=== PATIENT | male | born 1990 | race Caucasian/White ===

== ENCOUNTER 2019-02-24 01:43 | Emergency (ER) | payer MEDICAID ==
--- NOTE | 2019-02-24 01:51 | ER Report ---
History and Physical Time Seen By MD: 01:46 HPI/ROS CHIEF COMPLAINT: Hematuria HISTORY OF PRESENT ILLNESS: 28-year-old male presents with urinary burning and hematuria since 9 PM last night. Patient's had fever and chills for 2 days. Patient denies penile discharge. Patient denies flank pain. Patient denies history of kidney stones. REVIEW OF SYSTEMS: Respiratory: No cough, no dyspnea. Cardiovascular: No chest pain, no palpitations. Gastrointestinal: As above Musculoskeletal: As above Allergies: Coded Allergies: No Known Drug Allergies (Unverified , 02/24/19) Home Meds Active Scripts Cefuroxime Axetil (CEFUROXIME) 500 Mg Tablet, 500 MG PO BID for infection, #14 TAB Prov:MARVINSUDHIRGlen Delgado DO 02/24/19 Reviewed Nurses Notes: Yes Old Medical Records Reviewed: Yes Constitutional Vital Sign - Last 24 Hours 02/24/19 02/24/19 02/24/19 02/24/19 01:48 01:49 01:58 02:00 Temp 98.9 Pulse 92 92 Resp 22 B/P (MAP) 134/82 (99) 134/82 122/70 (87) Pulse Ox 94 92 O2 Delivery Room Air 02/24/19 02:13 Pulse 90 Pulse Ox 91 Physical Exam Vital signs stable, afebrile, pulse ox normal General Appearance: The patient is alert, has no immediate need for airway protection and no current signs of toxicity. Vital signs stable, afebrile, pulse ox normal HEENT: Anicteric sclera, TMs normal oropharynx without redness or exudate Respiratory: Chest is non tender, lungs are clear to auscultation. Cardiac: regular rate and rhythm. Mirella MRI from [facility] non-ill Gastrointestinal: Abdomen is soft and non tender, no masses, bowel sounds normal. Musculoskeletal: Neck: Neck is supple and non tender. Extremities have full range of motion and are non tender. Skin: No rashes or lesions. Thursday DIFFERENTIAL DIAGNOSIS: After history and physical exam differential diagnosis was considered for] probably to come in on Medical Decision Making Data Points Laboratory Urinalysis Test 02/24/19 01:46 Urine Color Red Urine Clarity Cloudy Urine pH 6.0 pH (4.8-9.5) Urine Specific [place] 1.006 Urine Protein 100 mg/dL (NEGATIVE) Urine Glucose (UA) Negative mg/dL (NEGATIVE) Urine Ketones Negative mg/dL (NEGATIVE) Urine Blood Large (NEGATIVE) Urine Nitrite Positive (NEGATIVE) Urine Bilirubin Negative (NEGATIVE) Urine Urobilinogen Negative mg/dL (0.2-1.9) Urine Leukocyte Esterase Small (NEGATIVE) Urine RBC 2250 /HPF (0-2/HPF) Urine WBC 156 /HPF (0-5/HPF) Urine WBC Clumps Many /HPF Urine Squamous Epithelial Cells None /LPF (</=FEW) Urine Transitional Epithelial Cells Many /LPF (NONE-FEW) Urine Bacteria Few /HPF (NONE-FEW) Urine Mucus None /HPF (NONE-FEW) ED Course/Re-evaluation ED Course Patient was admitted to an examination room. H&P was done. The differential diagnoses was considered. There are no findings on clinical examination. His urinalysis shows gross infection. He'll be treated with Ceftin 500 mg by mouth twice a day. A urinary cultures ordered. He is advised to follow-up with primary care if unimproved in 2-4 days. Decision to Disposition Date: Feb 24, 2019 Decision to Disposition Time: 02:13 Depart Departure Latest Vital Signs Vital Signs Date Time Temp Pulse Resp B/P (MAP) Pulse Ox O2 Delivery O2 Flow Rate FiO2 02/24/19 02:13 90 91 02/24/19 02:00 122/70 (87) 02/24/19 01:49 98.9 22 Room Air Impression: Primary Impression: Urinary tract infection Additional Impression: Hematuria Condition: Improved Disposition: HOME OR SELF-CARE Referrals: RAJANI BESS MD, FARRUKH MD New Scripts Cefuroxime Axetil (CEFUROXIME) 500 Mg Tablet 500 MG PO BID for infection, #14 TAB Prov: JEN WONG DO 02/24/19 Patient Instructions: Urinary Tract Infection in Men (ED) Additional Instructions: Drink plenty of fluids to flush out the infection Follow-up with primary care if unimproved in 2-4 days Problem Qualifiers Primary Impression: Urinary tract infection Urinary tract infection type: acute cystitis Hematuria presence: with hematuria Qualified Codes: N30.01 - Acute cystitis with hematuria Additional Impression: Hematuria Hematuria type: unspecified type Qualified Codes: R31.9 - Hematuria, unspecified JEN WONG DO Feb 24, 2019 01:51
[2019-02-24 02:00] VITALS: BP 122/70
[2019-02-24] MEDS ORDERED: CEFUROXIME AXETIL 250 MG TAB PO ONE (02:15)
[2019-02-24] MEDS ORDERED: CEFU500T10 PO (02:19)
== END 2019-02-24 02:30 | disposition home or self-care (01) ==
LOC: ER 01:58
DX: N30.01 Acute cystitis with hematuria (principal)
CPT/HCPCS: 81001; 87077; 87088; 87186; 99283